=== PATIENT | male | born 2000 | race Caucasian/White ===

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

== ENCOUNTER 2019-04-28 20:07 | Emergency (ER) | payer BC ==
[2019-04-28 20:25] VITALS: BP 124/78
--- NOTE | 2019-04-28 20:34 | UC ---
Respiratory Complaint HPI - HPI Summary HPI Summary: 19 yo male presents with cough. He tells me that over the last 7-10 days he has had a dry cough. Over the last 2 days has had a mildly productive cough with yellow/clear sputum. Last night was coughing all night and had trouble sleeping. He smokes an e cig. Nothing OTC for symptoms. Denies fever, chills, sinus symptoms, sore throat, SOB, chest pain. - History of Current Complaint Chief Complaint: UCGeneralIllness Stated Complaint: COUGH Time Seen by Provider: 04/28/19 20:33 Hx Obtained From: Patient Onset/Duration: Gradual Onset Severity Currently: None Pain Intensity: 0 - Allergies/Home Medications Allergies/Adverse Reactions: Allergies Allergy/AdvReac Type Severity Reaction Status Date / Time No Known Allergies Allergy Verified 04/28/19 20:25 PMH/Surg Hx/FS Hx/Imm Hx - Additional Past Medical History Additional PMH: NOne - Surgical History Surgical History: Yes Surgery Procedure, Year, and Place: EAR surgery. nasal surgery - Family History Known Family History: Positive: None - Social History Occupation: Student Lives: Dormitory/Roommates Alcohol Use: Occasionally Substance Use Type: None Smoking Status (MU): Current Some Day Smoker Type: eCigarettes Review of Systems All Other Systems Reviewed And Are Negative: No Constitutional: Positive: Negative Skin: Positive: Negative Eyes: Positive: Negative ENT: Positive: Negative Respiratory: Positive: Cough Cardiovascular: Positive: Negative Gastrointestinal: Positive: Negative Neurological: Positive: Negative Psychological: Positive: Negative Physical Exam - Summary Physical Exam Summary: GENERAL: NAD. WDWN. No pain distress. SKIN: No rashes, sores, lesions, or open wounds. HEENT: Head: AT/NC Eyes: EOM intact. Conjunctiva clear without inflammation or discharge. Ears: Hearing grossly normal. TMs intact, no bulging, erythema, or edema. Nose: Nasal mucosa pink and moist. NTTP maxillary and frontal sinus. Throat: Posterior oropharynx without exudates, erythema, or tonsillar enlargement. Uvula midline. NECK: Supple. Nontender. No lymphadenopathy. CHEST: CTAB. No accessory muscle use. Breathing comfortably and in no distress. CV: RRR. Pulses intact. Cap refill <2seconds NEURO: Alert. PSYCH: Age appropriate behavior. Triage Information Reviewed: Yes Vital Signs: Initial Vital Signs Temp 98.4 F 04/28/19 20:17 Pulse 74 04/28/19 20:17 Resp 14 04/28/19 20:17 BP 124/78 04/28/19 20:17 Pulse Ox 100 04/28/19 20:17 Vital Signs Reviewed: Yes Respiratory Course/Dx - Course Course Of Treatment: Suspect viral cough. Will rx for supportive care and have him f/u if symptoms do not improve - Differential Dx/Diagnosis Provider Diagnosis: Cough Discharge ED - Sign-Out/Discharge Documenting (check all that apply): Patient Departure All imaging exams completed and their final reports reviewed: No Studies - Discharge Plan Condition: Stable Disposition: HOME Prescriptions: Benzonatate CAP* [Tessalon 100 MG CAP*] 100 mg PO TID PRN #21 cap PRN Reason: Cough Codeine Phosphate/Guaifenesin [Guaifen-Codeine 100-10 mg/5 ml] 5 ml PO BEDTIME PRN #35 ml MDD 5ml PRN Reason: Cough Patient Education Materials: Acute Cough (ED) Referrals: No Primary Care Phys,NOPCP [Primary Care Provider] - Additional Instructions: If you develop a fever, shortness of breath, chest pain, new or worsening symptoms - please call your PCP or go to the ED immediately. - Billing Disposition and Condition Condition: STABLE Disposition: Home
== END 2019-04-28 20:44 | disposition home or self-care (01) ==
LOC: UCCORT 20:07
DX: R05 Cough (principal); F17.290 Nicotine dependence, other tobacco product, uncomplicated
CPT/HCPCS: 99212; G0463

== ENCOUNTER 2019-05-06 14:12 | Emergency (ER) | payer BC ==
[2019-05-06 14:34] VITALS: BP 124/65
--- NOTE | 2019-05-06 15:28 | UC ---
Respiratory Complaint HPI - HPI Summary HPI Summary: 2 WEEKS OF COUGH, CONGESTION, ST AND EAR PAIN. WAS SEEN ABOUT A WEEK AGO AND DIAGNOSED WITH VIRAL COUGH AND GIVEN COUGH MEDS. HE STATES HIS SX HAVE WORSENED. NOW WITH YELLOW PHLEGM AND MUTED HEARING. NO FEVER. - History of Current Complaint Chief Complaint: UCGeneralIllness Stated Complaint: SORE THROAT, CONGESTION Time Seen by Provider: 05/06/19 14:43 Hx Obtained From: Patient Onset/Duration: Gradual Onset, Lasting Weeks, Still Present Timing: Constant Severity Initially: Moderate Severity Currently: Moderate Pain Intensity: 6 Pain Scale Used: 0-10 Numeric Character: Cough: Productive Aggravating Factors: Nothing Alleviating Factors: Nothing Associated Signs And Symptoms: Positive: URI, Nasal Congestion. Negative: Dyspnea, Fever, Chills, Wheezing - Allergies/Home Medications Allergies/Adverse Reactions: Allergies Allergy/AdvReac Type Severity Reaction Status Date / Time No Known Allergies Allergy Verified 05/06/19 14:27 PMH/Surg Hx/FS Hx/Imm Hx Previously Healthy: Yes - Surgical History Surgical History: Yes Surgery Procedure, Year, and Place: EAR surgery. nasal surgery - Family History Known Family History: Positive: None - Social History Alcohol Use: Weekly Substance Use Type: None Smoking Status (MU): Current Some Day Smoker Type: Cigarettes, eCigarettes Amount Used/How Often: one real cig/day Length of Time of Smoking/Using Tobacco: 1 yr. Have You Smoked in the Last Year: Yes Review of Systems All Other Systems Reviewed And Are Negative: Yes Constitutional: Positive: Fatigue ENT: Positive: Sore Throat, Ear Ache, Nasal Discharge Respiratory: Positive: Cough Cardiovascular: Positive: Negative Gastrointestinal: Positive: Negative Physical Exam Triage Information Reviewed: Yes Appearance: Well-Appearing, No Pain Distress, Well-Nourished Vital Signs: Initial Vital Signs Temp 98.9 F 05/06/19 14:28 Pulse 70 05/06/19 14:28 Resp 20 05/06/19 14:28 BP 124/65 05/06/19 14:28 Pulse Ox 99 05/06/19 14:28 Vital Signs Reviewed: Yes Eyes: Positive: Conjunctiva Clear ENT: Positive: Hearing grossly normal, Tonsillar swelling, Tonsillar exudate, Other - RIGHT TM BULGING, [place], LEFT TM WITH POSTSURGICAL CHANGES. Negative: Pharyngeal erythema Neck: Positive: Supple, Nontender, No Lymphadenopathy Respiratory Exam: Normal Cardiovascular Exam: Normal Abdomen Description: Positive: Soft Musculoskeletal: Positive: No Edema Neurological: Positive: Alert Psychological: Positive: Age Appropriate Behavior Skin: Negative: Rashes Respiratory Course/Dx - Course Course Of Treatment: PATIENT'S RESPIRATORY SYMPTOMS MAY BE VIRALLY MEDIATED HOWEVER HE DOES APPEAR TO BE DEVELOPING A RIGHT-SIDED EAR INFECTION AND HAS EXUDATE ON HIS TONSILS. WILL COVER WITH AMOXICILLIN AND TREAT HIS AIRWAY INFLAMMATION/COUGH WITH PREDNISONE. ENCOURAGED REST, HYDRATION AND OTC MEDICATIONS NEEDED. - Differential Dx/Diagnosis Provider Diagnosis: Right otitis media, Tonsillitis Discharge ED - Sign-Out/Discharge Documenting (check all that apply): Patient Departure All imaging exams completed and their final reports reviewed: No Studies - Discharge Plan Condition: Stable Disposition: HOME Prescriptions: Amoxicillin PO (*) [Amoxicillin 500 MG CAP*] 1,000 mg PO Q12H #40 cap predniSONE TAB* [Deltasone TAB*] 50 mg PO DAILY #5 tab Patient Education Materials: Ear Infection (ED), Tonsillitis (ED) Forms: *School Release Referrals: [facility] [Outside] - If Needed Additional Instructions: YOUR RESPIRATORY SYMPTOMS ARE LIKELY VIRALLY MEDIATED BUT I AM CONCERNED ABOUT YOUR RIGHT EAR. YOU MAY BE DEVELOPING AN EAR INFECTION. YOUR TONSILS ALSO LOOK INFECTED. TAKE THE PREDNISONE TO HELP WITH YOUR COUGH AND AIRWAY INFLAMMATION. TAKE THE ANTIBIOTIC TO COVER FOR BACTERIAL INFECTION. REST, HYDRATE, OTC MEDS NEEDED. - Billing Disposition and Condition Condition: STABLE Disposition: Home
== END 2019-05-06 15:27 | disposition home or self-care (01) ==
LOC: UCCORT 14:12
DX: H66.91 Otitis media, unspecified, right ear (principal); J03.90 Acute tonsillitis, unspecified; J34.89 Other specified disorders of nose and nasal sinuses; R05 Cough; F17.210 Nicotine dependence, cigarettes, uncomplicated; F17.290 Nicotine dependence, other tobacco product, uncomplicated
CPT/HCPCS: 99212; G0463

== ENCOUNTER 2019-08-21 14:09 | Emergency (ER) | payer BC ==
[2019-08-21 15:00] VITALS: BP 116/65
[2019-08-21 15:17] LABS: Influenza B Molecular POSITIVE (Negative)
--- NOTE | 2019-08-21 15:24 | UC ---
Respiratory Complaint HPI - HPI Summary HPI Summary: 19 yo male with < 24 hour hx of n/v x 1 , f/c, ELIZABETH, myalgias/cough and congestion no cp or sob - History of Current Complaint Chief Complaint: UCRespiratory Stated Complaint: SINUSES,COUGH Time Seen by Provider: 08/21/19 15:21 Hx Obtained From: Patient Onset/Duration: Gradual Onset, Lasting Hours Timing: Constant Severity Initially: Mild Severity Currently: Moderate Pain Intensity: 4 Pain Scale Used: 0-10 Numeric Character: Cough: Nonproductive Aggravating Factors: Nothing Alleviating Factors: Nothing Associated Signs And Symptoms: Positive: Fever, Chills, Nasal Congestion, Sinus Discomfort - Allergies/Home Medications Allergies/Adverse Reactions: Allergies Allergy/AdvReac Type Severity Reaction Status Date / Time No Known Allergies Allergy Verified 08/21/19 14:56 Home Medications: Home Medications Azelas/Fluticasone/Sod Chlorid [Ticalast 137-50 & 0.9 Mcg/Act-%] 1 spray NA DAILY 08/21/19 [History Confirmed 08/21/19] Oseltamivir CAP* [Tamiflu CAP*] 75 mg PO BID #10 cap 08/21/19 [Rx] Promethazine 25 mg TAB [Phenergan 25 mg TAB] 25 mg PO Q6H PRN #6 tab 08/21/19 [ Rx] guaiFENesin ER TAB [Mucinex*] 600 mg PO ONCE 08/21/19 [History Confirmed ] PMH/Surg Hx/FS Hx/Imm Hx Previously Healthy: Yes - Surgical History Surgical History: Yes Surgery Procedure, Year, and Place: Left EAR surgery. nasal surgery - Family History Known Family History: Negative: Cardiac Disease, Hypertension, Diabetes - Social History Alcohol Use: Occasionally Substance Use Type: None Smoking Status (MU): Current Some Day Smoker Type: Cigarettes, eCigarettes Amount Used/How Often: 2 cigarettes daily Length of Time of Smoking/Using Tobacco: 1 yr. Have You Smoked in the Last Year: Yes Review of Systems All Other Systems Reviewed And Are Negative: Yes Constitutional: Positive: Fever, Chills, Fatigue Skin: Positive: Negative Eyes: Positive: Negative ENT: Positive: Nasal Discharge, Sinus Congestion, Sinus Pain/Tenderness Respiratory: Positive: Cough Cardiovascular: Positive: Negative Gastrointestinal: Positive: Negative Genitourinary: Positive: Negative Motor: Positive: Negative Neurovascular: Positive: Negative Musculoskeletal: Positive: Myalgia Neurological/Mental Status: Positive: Headache Psychological: Positive: Negative Physical Exam Triage Information Reviewed: Yes Appearance: Well-Appearing, No Pain Distress, Well-Nourished Vital Signs: Initial Vital Signs Temp 100.0 F 08/21/19 14:55 Pulse 93 08/21/19 14:55 Resp 16 08/21/19 14:55 BP 116/65 08/21/19 14:55 Pulse Ox 98 08/21/19 14:55 Vital Signs Reviewed: Yes Eyes: Positive: Conjunctiva Clear ENT: Positive: Hearing grossly normal, Pharynx normal, Nasal congestion, Nasal drainage, TMs normal, Tonsillar swelling, Uvula midline. Negative: Trismus, Muffled voice, Hoarse voice, Sinus tenderness Neck: Positive: Supple, Nontender. Negative: Enlarged Nodes @ Respiratory: Positive: Lungs clear, Normal breath sounds, No respiratory distress, No accessory muscle use Cardiovascular: Positive: RRR, No Murmur Musculoskeletal: Positive: ROM Intact, No Edema Neurological: Positive: Alert Psychological Exam: Normal Skin Exam: Normal Diagnostics - Laboratory Lab Results: influenza B + Respiratory Course/Dx - Differential Dx/Diagnosis Provider Diagnosis: Influenza B Discharge ED - Sign-Out/Discharge Documenting (check all that apply): Patient Departure All imaging exams completed and their final reports reviewed: No Studies - Discharge Plan Condition: Stable Disposition: HOME Prescriptions: Oseltamivir CAP* [Tamiflu CAP*] 75 mg PO BID #10 cap Promethazine 25 mg TAB [Phenergan 25 mg TAB] 25 mg PO Q6H PRN #6 tab PRN Reason: Nausea Patient Education Materials: Influenza (ED) Referrals: No Primary Care Phys,NOPCP [Primary Care Provider] - Additional Instructions: rest fluids tylenol or advil recheck in 5 days if not better - Billing Disposition and Condition Condition: STABLE Disposition: Home
== END 2019-08-21 15:33 | disposition home or self-care (01) ==
LOC: UCCORT 14:09
DX: J10.1 Influenza due to other identified influenza virus with other respiratory manifestations (principal); F17.210 Nicotine dependence, cigarettes, uncomplicated; F17.290 Nicotine dependence, other tobacco product, uncomplicated
CPT/HCPCS: 99212; G0463